=== PATIENT | male | born 1950 | race American Indian/Alaskan Native ===

== ENCOUNTER 2017-03-11 05:53 | Day surgery (SDC) | payer MEDICARE, OTHER ==
[2017-03-11 06:36] LABS: Basophils % (Auto) 1.1 % (0.0-1.8); Hematocrit 45.5 % (35.5-45.6); Hemoglobin 14.9 gm/dl (11.8-15.2); Mean Corpuscular HGB Conc 33 % (32-34); Mean Corpuscular Hemoglobin 27 pg (28-32); Mean Corpuscular Volume 83 fl (84-94); Platelet Count 206 K/mm3 (140-440); Red Blood Count 5.52 M/mm3 (3.65-5.03); Red Cell Distribution Width 14.5 % (13.2-15.2); White Blood Count 5.8 K/mm3 (4.5-11.0)
[2017-03-11 06:54] LABS: Anion Gap 18 mmol/L; BUN/Creatinine Ratio 15.38; Blood Urea Nitrogen 20 mg/dL (9-20); Calcium 8.8 mg/dL (8.4-10.2); Carbon Dioxide 22 mmol/L (22-30); Chloride 101.6 mmol/L (98-107); Glucose 97 mg/dL (75-100); Potassium 4.1 mmol/L (3.6-5.0); Sodium 137 mmol/L (137-145)
[2017-03-11 06:55] LABS: INR 0.88 (0.87-1.13)
[2017-03-11] MEDS ORDERED: NACL 0.9% 500 ML 500 ML IV SCH (07:00)
[2017-03-11] MEDS ORDERED: HEPARIN 10,000 UNITS/10 ML ONE (07:51)
[2017-03-11] MEDS ORDERED: VERSED ONE (07:51)
[2017-03-11] MEDS ORDERED: SUBLIMAZE ONE (07:51)
[2017-03-11] MEDS ORDERED: HEPARIN/NS 5000 UNIT/500ML(CATH LAB) 1,000 ML IR ONE (07:51)
[2017-03-11] MEDS ORDERED: NITROGLYCERIN SYRINGE 3 ML ONE (07:52)
[2017-03-11] MEDS ORDERED: XYLOCAINE 2% INFILTRATI ONE (07:52)
[2017-03-11] MEDS ORDERED: CALAN ONE (07:52)
--- NOTE | 2017-03-11 08:32 | Short Stay Summary ---
Short Stay Documentation Date of service: 03/11/17 - History H&P: obtained from office - Allergies and Medications Current Medications: Allergies No Known Allergies Allergy (Verified 03/11/17 06:17) Home Medications Medication Instructions Recorded Confirmed Last Taken Type Aspirin EC [Aspirin Enteric Coated 81 mg PO DAILY 03/11/17 03/11/17 03/11/17 04: 30 History TAB] Finasteride [Proscar] 10 mg PO DAILY 03/11/17 03/11/17 03/11/17 04:00 History Lovastatin [Altoprev] 10 mg PO DAILY 03/11/17 03/11/17 03/11/17 04:00 History 10mg Sildenafil Citrate [Viagra] 1 tab PO PRN PRN 03/11/17 03/11/17 03/07/17 History 50mg Active Medications Sodium Chloride (Nacl 0.9% 500 Ml) 500 mls @ 50 mls/hr IV DIRECT BRITNEY Stop: 03/11/17 16:59 Last Admin: 03/11/17 07:33 Dose: 50 mls/hr - Brief post op/procedure progress note Date of procedure: 03/11/17 Pre-op diagnosis: chest pain Post-op diagnosis: other (Normal coronaries) Procedure: [facility] - Hospital course Hospital course: Uneventful - Disposition Condition at discharge: Good Disposition: DC-01 TO HOME OR SELFCARE - Discharge Diagnoses (1) Chest pain Status: Acute Qualifiers: Chest pain type: C Ischemic chest pain type: I Short Stay Discharge Plan Activity: no restrictions Weight Bearing Status: Non-Weight Bearing Diet: low fat, low cholesterol Wound: keep clean and dry Follow up with: JEREMIAH ERICKSON MD, PHD [Primary Care Provider] - 7 Days
[2017-03-11 10:09] VITALS: BP 141/81
--- NOTE | 2017-03-11 12:34 | Operative Report ---
Operative Report Operative Report: Operative Report: Procedures performed Left and right coronary angiogram Left ventriculogram Operators Indication : chest pain Sedation : moderate sedation using Versed and fentanyl Specimens removed : None Procedure details Informed consent is obtained from the patient. Patient was cleaned and draped in the usual sterile fashion. Using the standard precautions procedures a 6 [place] sheath was placed in the right radial artery. She was cleaned and flushed. Diagnostic coronary angiogram was done using the JL 3.5 and JR4 diagnostic catheter exchanged over a guidewire. LV gram was done using JR 4 catheter. At the end sheat was pulled and TR band placed. Complete homeostasis obtained. Findings Hemodynamics Aorta 118/80 mmHg Left ventricular pressure 118/24mmHg Left ventriculogram done in today's LAZCANO projection shows normal LV systolic function Angiogram details Left main angiographically normal LAD has mild luminal irregularities Circumflex has mild luminal irregularities The RCA is dominant and angiographically normal Impression No significant CAD Normal LV systolic function Plan Risk factor modification Routine radial artery sheath care
== END 2017-03-11 10:30 | disposition home or self-care (01) ==
LOC: OPU 05:53
PROVIDERS: ATTEND Internal Medicine Cardiovascular Disease
DX: R07.9 Chest pain, unspecified (principal)
CPT/HCPCS: 36415; 80048; 85025; 85610; 85730; 93005; 93010; 93458; C1887; C1894; J1644; J2250; J3010; J7040; Q9967

== ENCOUNTER 2017-04-06 14:04 | Outpatient (CLI) | payer MEDICARE, OTHER ==
--- NOTE | 2017-04-06 16:03 | XRay Report ---
CERVICAL SPINE SERIES THREE VIEWS: 04/06/17 14:04:00 CLINICAL: Neck pain. FINDINGS: Normal vertebral body height and alignment. A large anterior osteophyte at C2-3 with a normal disc space. Mild disc space narrowing and small anterior osteophytes at C4-5. No fracture or subluxation. Normal odontoid and C1. Normal airway and soft tissues. IMPRESSION: Degenerative change with spondylosis at C2-3 and C4-5. Mild degenerative disc disease at C4-5.
== END 2017-04-06 14:05 | disposition home or self-care (01) ==
LOC: SPVIMAG 14:04
DX: M50.321 Other cervical disc degeneration at C4-C5 level (principal); M47.892 Other spondylosis, cervical region; M25.78 Osteophyte, vertebrae; E78.00 Pure hypercholesterolemia, unspecified; F17.200 Nicotine dependence, unspecified, uncomplicated
CPT/HCPCS: 72040